=== PATIENT | male | born 1995 | race Asian ===

== ENCOUNTER 2017-07-02 17:54 | Emergency (ER) | payer OTHER ==
--- NOTE | 2017-07-02 20:11 | EDPHY ---
General Narrative: CHIEF COMPLAINT: Left index finger laceration HISTORY OF PRESENT ILLNESS: Patient complains of left index finger laceration that happened less than 2 hours prior to arrival. He was cooking in his kitchen when he accidentally cut his left index finger on the radial side. Moderate pain in bleeding. No numbness. Some tingling. No difficulty bending or straightening the finger. No broken glass or foreign body present. Tetanus is up-to-date less than 1 year ago. No other associated complaints or modifying factors. TIME OF INJURY: Less than 2 hours prior to arrival TETANUS STATUS: Last year MEDICAL/SURGICAL/SOCIAL HISTORY: None. Originally from [place]. Currently a freshman at [employer] REVIEW OF SYSTEMS: Ten systems reviewed and are negative unless otherwise noted in the HPI EXAMINATION General Appearance: Alert, no distress Head: normocephalic, atraumatic Cardiovascular: Pulses normal throughout. Symmetric radial pulses 2+. Brisk cap refill in the affected finger. Neurological: A&O, light sensory symmetric on the dorsum of the hand, interossei strength symmetric Skin: Warm and dry, no rash. 2 cm laceration on the left index finger, radial side. No obvious foreign body. No obvious tendon injury. Neurovascular intact distally. Extremities: Tenderness in the area of left index finger laceration. Full flexion extension retained. DIFFERENTIAL DIAGNOSES: Including but not limited to finger laceration, laceration with tendon injury, laceration complication, laceration foreign be MDM: 7:55 p.m. Laceration to the left index finger, volar side. Neurovascular intact. No evidence of tendon injury. Digital block has been administered. Proceed with irrigation re-evaluation. 8:29 p.m. Left index finger laceration that appears to be uncomplicated. There is no evidence of tendon injury. He remains neuro intact with excellent flexion and extension of the left index finger. Wound has been repaired without difficulty. A dressing will be placed. Wound care discussed. Return here in 7 -10 days for suture removal. PROCEDURE: Laceration repair Consent: Verbal Location: Left index finger, radial side Length of repair: 2 cm Complexity: Simple Layer involvement: Single Anesthesia: Digital block Irrigation: Extensive Debridement: None Procedure description: Following good anesthesia, the wound was copiously irrigated. Wound bed was explored and there is no foreign body noted. No evidence of tendon injury. Wound borders were approximated well with good hemostasis. Tolerated well without complication. Suture/Staple material: 5-0 Ethilon, 5 simple interrupted sutures Wound care: Routine as discussed Suture/Staple removal: 7-10 Days PROCEDURE: Digital Block Indication: Finger laceration Consent: Verbal Location: Left index finger Anesthesia: Lidocaine 1% plain, 0.25% Marcaine plain, 5mL Description: Base of the finger was prepped. The above was infused without difficulty. Tolerated well. Good anesthesia. Complications: None ED Precautions: Worsening pain. Erythema, edema, cyanosis, pallor, paresthesia or anesthesia. - History Smoking Status: Current every day smoker - Objective Vital Signs: Initial Vital Signs Temperature (C) 97.9 F 07/02/17 17:55 Heart Rate 76 07/02/17 17:55 Respiratory Rate 16 07/02/17 17:55 Blood Pressure 105/65 07/02/17 17:55 O2 Sat (%) 96 07/02/17 17:55 O2 Delivery Mode Room Air Allergies/Adverse Reactions: No Known Allergies Allergy (Unverified 07/02/17 17:58) Home Medications: Medication Instructions Recorded NK [No Known Home Meds] 07/02/17 Departure - Departure Disposition: Home, Routine, Self-Care Clinical Impression: Laceration of index finger of left hand without complication Qualifiers: Encounter type: initial encounter Qualified Code(s): S61.211A - Laceration without foreign body of left index finger without damage to nail, initial encounter Condition: Good Instructions: Care For Your Stitches (ED), Laceration (ED) Additional Instructions: 1. Daily wound care as discussed 2. ED precautions as discussed 3. Return to emergency department in 7-10 days for suture removal Referrals: Concetta CHANG [Clinic] - As per Instructions Physician,Emergency Dept, [Medical Doctor] - 07/09/17
[2017-07-09 20:59] VITALS: BP 145/59; PULSE 110; RESP 18; TEMP 98.6; O2SAT 100
== END 2017-07-02 20:37 | disposition home or self-care (01) ==
PROC: 0HQGXZZ Repair Left Hand Skin, External Approach (ICD-10-PCS; principal; 2017-07-02)
DX: S61.211A Laceration without foreign body of left index finger without damage to nail, initial encounter (principal); F17.200 Nicotine dependence, unspecified, uncomplicated; W26.8XXA Contact with other sharp object(s), not elsewhere classified, initial encounter; Y92.000 Kitchen of unspecified non-institutional (private) residence as the place of occurrence of the external cause; Y93.G3 Activity, cooking and baking